=== PATIENT | female | born 1965 | race Two or more races ===

== ENCOUNTER 2018-01-10 09:36 | Day surgery (SDC) | payer OTHER | END 2018-01-10 15:30 | disposition home or self-care (01) | LOC: AMB-ENDOS 09:36 | DX: K52.89 Other specified noninfective gastroenteritis and colitis (principal); K64.0 First degree hemorrhoids ==

== ENCOUNTER 2020-11-11 07:26 | Day surgery (SDC) | payer OTHER | END 2020-11-11 11:30 | disposition home or self-care (01) | LOC: AMB-ENDOS 07:26 | PROVIDERS: ATTEND Colon & Rectal Surgery | DX: D12.8 Benign neoplasm of rectum (principal); K64.0 First degree hemorrhoids; Z20.822 Contact with and (suspected) exposure to COVID-19 ==